=== PATIENT | male | born 1995 | race Two or more races ===

== ENCOUNTER 2017-05-11 11:08 | Emergency (ER) | payer SELFPAY ==
[~2017-05-11] VITALS: Ht 172.7 cm; Wt 68.0 kg
[2017-05-11 11:26] VITALS: BP 137/75
== END 2017-05-11 13:12 | disposition home or self-care (01) ==
LOC: ER 11:08
DX: F41.1 Generalized anxiety disorder (principal); F17.210 Nicotine dependence, cigarettes, uncomplicated; F12.10 Cannabis abuse, uncomplicated
CPT/HCPCS: 80307